=== PATIENT | male | born 1965 | race Caucasian/White ===

== ENCOUNTER → 2018-10-23 | Outpatient (REF) | payer OTHER, MEDICARE ==
[2018-10-23 19:41] LABS: APPEARANCE, URINE HAZY (CLEAR); BACTERIA, URINE AUTO 1+ (NEGATIVE); BILIRUBIN, URINE AUTO NEGATIVE (NEGATIVE); BLOOD, URINE BLOOD NEGATIVE (NEGATIVE); COLOR, URINE YELLOW (YELLOW); GLUCOSE, URINE (UA) AUTO NEGATIVE (NEGATIVE); KETONE, URINE AUTO NEGATIVE (NEGATIVE); LEUKOCYTE ESTERASE, URINE AUTO NEGATIVE (NEGATIVE); MUCUS, URINE SMALL (NEGATIVE); NITRITE, URINE AUTO POSITIVE (NEGATIVE); PROTEIN, URINE AUTO NEGATIVE (NEGATIVE); RBC, URINE AUTO 1 /HPF (0-3); SPECIFIC GRAVITY URINE AUTO 1.024 (1.002-1.035); SQUAMOUS EPITHELIAL CELL UR AU 0 /HPF (0-6); UROBILINOGEN, URINE AUTO 0.2 mg/dL (0.0-2.0); WBC, URINE AUTO 5 /HPF (0-3)
== END ==
LOC: M SMT 17:37
DX: N31.9 Neuromuscular dysfunction of bladder, unspecified (principal)

== ENCOUNTER → 2019-03-25 | Outpatient (REF) | payer OTHER, MEDICARE | LOC: M LAB LCGH 11:32 | PROVIDERS: ATTEND Surgery | DX: K31.7 Polyp of stomach and duodenum (principal) ==

== ENCOUNTER 2020-07-19 20:42 | Inpatient (IN) | payer MEDICARE, OTHER ==
[~2020-07-19] VITALS: Ht 188 cm; Wt 120.6 kg
[2020-07-19] MEDS ORDERED: PRAV10TA3 PO (20:49)
[2020-07-19] MEDS ORDERED: MONT10TA4 PO (20:49)
[2020-07-19] MEDS ORDERED: TRAM50TA2 PO (20:49)
[2020-07-19] MEDS ORDERED: CYCL-707 PO (20:49)
[2020-07-19] MEDS ORDERED: CELE100C PO (20:49)
[2020-07-19] MEDS ORDERED: OMEP-221 PO (20:49)
[2020-07-19] MEDS ORDERED: CELE1CAP4 PO (20:49)
[2020-07-19] MEDS ORDERED: ACETAMINOPHEN 500 MG TAB PO ONE (22:30)
[2020-07-19 22:35] LABS: BASO % 0.3 % (0.0-1.0); EOS # 0.1 10^3/uL (0.0-0.5); EOS % 0.7 % (0.0-3.0); HEMATOCRIT 42.1 % (42.0-52.0); LYMPH # 0.8 10^3/uL (1.5-5.0); LYMPH % 7.8 % (24.0-44.0); MEAN CORPUSCULAR HEMOGLOBIN 29.9 pg (27.0-33.0); MEAN CORPUSCULAR HGB CONC 33.3 g/dl (32.0-36.5); MEAN CORPUSCULAR VOLUME 89.8 fl (80.0-96.0); MONO # 0.4 10^3/uL (0.0-0.8); NEUTROPHILS # 9.1 10^3/uL (1.5-8.5); NEUTROPHILS % 86.6 % (36.0-66.0); PLATELET COUNT, AUTOMATED 129 10^3/uL (150-450); RED BLOOD COUNT 4.69 10^6/uL (4.30-6.10); WHITE BLOOD COUNT 10.5 10^3/uL (4.0-10.0)
[2020-07-19 22:45] LABS: BLOOD UREA NITROGEN 17 MG/DL (7-18); C REACTIVE PROTEIN QUANTITATIV 3.09 MG/DL (0.00-0.30); CALCIUM LEVEL 8.5 MG/DL (8.5-10.1); CARBON DIOXIDE LEVEL 30 MEQ/L (21-32); CHLORIDE LEVEL 107 MEQ/L (98-107); CREATININE FOR GFR 1.05 MG/DL (0.70-1.30); GLOMERULAR FILTRATION RATE > 60.0 (>56); GLUCOSE, FASTING 84 MG/DL (70-100); POTASSIUM SERUM 4.6 MEQ/L (3.5-5.1); SODIUM LEVEL 142 MEQ/L (136-145)
[2020-07-19] MEDS ORDERED: cefTRIAXone SOD 1 GM in D5W MINI-BAG PLUS 50 ML IV ONE (22:45)
[2020-07-19] MEDS ORDERED: NS 3,270 ML in IV 1 EA IV ONE (22:45)
[2020-07-19] MEDS ORDERED: ISOVUE-370 76% 100ML VIAL As Ordered ONE (23:38)
--- NOTE | 2020-07-20 00:03 | REPVR ---
PROCEDURE INFORMATION: Exam: CT Abdomen And Pelvis With Contrast Exam date and time: 07/19/2020 11:48 PM Age: 55 years old Clinical indication: Fever; Additional info: Fever, UTI TECHNIQUE: Imaging protocol: Computed tomography of the abdomen and pelvis with intravenous contrast. Radiation optimization: All CT scans at this facility use at least one of these dose optimization techniques: automated exposure control; mA and/or kV adjustment per patient size (includes targeted exams where dose is matched to clinical indication); or iterative reconstruction. Contrast material: ISOVUE 370; Contrast volume: 100 ml; Contrast route: INTRAVENOUS (IV); COMPARISON: No relevant prior studies available. FINDINGS: Liver: Enlarged low attenuating liver, evidence of hepatic steatosis. Gallbladder and bile ducts: Normal. No calcified stones. No ductal dilation. Pancreas: Normal. No ductal dilation. Spleen: Normal. No splenomegaly. Adrenals: Normal. No mass. Kidneys and ureters: Normal. No hydronephrosis. Stomach and bowel: Mild thickening of the cecum, and sigmoid colon. Nonspecific, question infectious or inflammatory bowel disease. Recommend follow-up to exclude neoplasm. Appendix: No evidence of appendicitis. Intraperitoneal space: Unremarkable. No free air. No significant fluid collection. Vasculature: Unremarkable. No abdominal aortic aneurysm. Lymph nodes: Couple mildly enhancing right lower quadrant lymph nodes measuring up to 1 cm. Bladder: Mild haziness around the bladder wall, correlate for cystitis. Reproductive: Irregular enlarged 6 cm prostate gland within the area of low attenuation in the right central aspect, and left lateral gland, correlate with PSA. Bones/joints: There is a bilateral spondylolysis defect of the L5-S1 level, with no evidence of spondylolisthesis. Soft tissues: Small fat protruding umbilical hernia. IMPRESSION: 1. Irregular enlarged 6 cm prostate gland within the area of low attenuation in the right central aspect, and left lateral gland, correlate with PSA. 2. Mild haziness around the bladder wall, correlate for cystitis. 3. Mild thickening of the cecum, and sigmoid colon. Nonspecific, question infectious or inflammatory bowel disease. Recommend follow-up to exclude neoplasm. 4. There is a bilateral spondylolysis defect of the L5-S1 level, with no evidence of spondylolisthesis. Electronically signed by: Bradley Bernabe On 07/20/2020 00:02:34 AM
[2020-07-20] MEDS: NS 1,000 ML IV SCH ×3 (00:46→12:00)
[2020-07-20] MEDS ORDERED: MOM 30ML SUSPENSION UDC PO PRN (01:00)
[2020-07-20] MEDS ORDERED: KETOROLAC 30 MG/ML 1ML VIAL IV ONE ×2 (01:00→02:00)
[2020-07-20 01:12] LABS: ERYTHROCYTE SEDIMENTATION RATE 27 mm/hr (0-20)
[2020-07-20] MEDS ORDERED: CICL8SOL3 TOP (01:13)
[2020-07-20] MEDS ORDERED: PRAV40TA2 PO (01:14)
[2020-07-20 01:32] LABS: HEMOGLOBIN A1c 5.4 %
[2020-07-20] MEDS ORDERED: CYCLOBENZAPRINE 10MG TABLET PO PRN (02:00)
[2020-07-20] MEDS ORDERED: cefTRIAXone SOD 2 GM in D5W MINI-BAG PLUS 50 ML IV SCH ×2 (02:00→23:00)
--- NOTE | 2020-07-20 02:14 | HPEPDOC ---
[facility] Medical History & Physical Date of Admission Jul 20, 2020 Date of Service: Jul 20, 2020 Attending Physician: OG MARQUEZ MD History and Physical TIME OF SERVICE: 115AM CHIEF COMPLAINT: urethral discharge HISTORY OF PRESENT ILLNESS: This 55 yr old M has to complete intermittent self-catheterization bc he has a neurogenic bladder 2/2 nerve impingement. He came to the ER bc he noticed pus co shabbir out of his urethra. His last UTI was in February. He is also c/o of f/c, muscle aches, nausea and 10/10 in severity lower back pain that begun yesterday morning; he cant identify any alleviating factors but feels like the hospital bed is making his back pain worse. He denies having abdominal pain. REVIEW OF SYSTEMS: 12 point review of systems negative except as listed in HPI PAST MEDICAL/ SURGICAL HISTORY: Neurogenic bladder 2/2 nerve impingement / herniated disk (sees & ) Chronic Back Pain / hx of back surgery in 1995 Dyslipidemia Carpal Tunnel Syndrome Denies MO, DM, HTN or CVA SOCIAL HISTORY: -tobacco / - alcohol / - drugs FAMILY HISTORY: Reviewed none ALLERGIES: Please see below. HOME MEDICATIONS: Please see below. PHYSICAL EXAMINATION: Vital Signs Date Time Temp Pulse Resp B/P (MAP) Pulse Ox O2 Delivery O2 Flow Rate FiO2 07/19/20 20:42 99.1 89 18 159/86 (110) 99 Room Air GENERAL APPEARANCE: well nourished / well developed / in a lot of pain when asked to turn onto his side HEENT: EOMI / MM&P CARDIOVASCULAR: RRR/NMRG / radial pulses intact LUNGS: CTAB on RA ABDOMEN: obese /soft &NT MUSCULOSKELETAL: BENJAMÍN / no CVA tenderness, c/o pain shooting down his spine to his legs INTEGUMENT: flushed/ diaphoretic NEUROLOGICAL: CN 2-12 intact / speech not dysarthric PSYCHIATRIC: A&Ox 3/ able to understand and follow commands LABORATORY DATA: 07/19/20 22:04 Immature Granulocyte % (Auto) 0.6, Neutrophils (%) (Auto) 86.6H, Lymphocytes (%) (Auto) 7.8L, Monocytes (%) (Auto) 4.0, Eosinophils (%) (Auto) 0.7, Basophils (%) (Auto) 0.3, Neutrophils # (Auto) 9.1H, Lymphocytes # (Auto) 0.8L, Monocytes # (Auto) 0.4, Eosinophils # (Auto) 0.1, Basophils # (Auto) 0.0, Nucleated Red Blood Cells % (auto) 0.0, Erythrocyte Sedimentation Rate 27H, Anion Gap 5L, Glomerular Filtration Rate > 60.0, Estimated Mean Plasma Glucose 108, Hemoglobin A1c 5.4, Lactic Acid Level 1.9, Calcium Level 8.5, C-Reactive Protein, Quantitative 3.09H 07/19/20 22:52: Urine Color YELLOW, Urine Appearance CLEAR, Urine pH 5.0, Urine Specific Mabel 1.015, Urine Protein NEGATIVE, Urine Glucose (UA) NEGATIVE, Urine Ketones NEGATIVE, Urine Blood 2+H, Urine Nitrite POSITIVEH, Urine Bilirubin NEGATIVE, Urine Urobilinogen 0.2, Urine Leukocyte Esterase 1+H, Urine WBC (Auto) 59H, Ur ine RBC (Auto) 29H, Urine Hyaline Casts (Auto) 0, Urine Bacteria (Auto) 1+H, Urine Squamous Epithelial Cells 0, Urine Transitional Epithelial Cells <1, Urine Mucus (Auto) SMALL, Urine Sperm (Auto) IMAGING: CT abd/pelvis w contrast IMPRESSION: 1. Irregular enlarged 6 cm prostate gland within the area of low attenuation in the right central aspect, and left lateral gland, correlate with PSA. 2. Mild haziness around the bladder wall, correlate for cystitis. 3. Mild thickening of the cecum, and sigmoid colon. Nonspecific, question infectious or inflammatory bowel disease. Recommend follow-up to exclude neoplasm. 4. There is a bilateral spondylolysis defect of the L5-S1 level, with no evidence of spondylolisthesis. MICROBIOLOGY: 07/19/20 Blood Culture, Received Pending 07/19/20 Urine Culture, Received Pending 07/19/20 Blood Culture, Received Pending ASSESSMENT: is a 55 yr old w a hx of neurogenic bladder requiring intermittent straight cath, frequent UTIs and chronic back pain who is admitted for sepsis 2/2 UTI. PLAN: 1. Sepsis 2/2 cystitis +/- prostatitis SIRS criteria Temp >101 / HR >90 / RR > 20 Sepsis protocol initiated in ER, pt received IVF and Rocephin Qsofa Score = 0 = not high risk Plan: admit to med/surg / telemetry / c/w Rocephin / c/w IVF /f/u blood cx, UA w Cx / acetaminophen for fever / day time team may consider calling Uro to determine if the prostate enlargement on CT is due to prostatitis and or if the pt will need to have is PSA checked once the infection has resolved 2. Acute on Chronic Back Pain CT unremarkable Plan: resume tramadol celecoxib w PPI / add Flector patch / PT consult / if pain persists day time team may consider MRI spine 3. Thickening of Cecum Had a c-scope last year which was unremarkable Hg is wnl Plan: f/u w PCP for GI referral on an out pt basis 4. Thrombocytopenia Born in 1965 Plan: screen for Hep C 5. Obesity BMI 30.9 complicates care Plan: f/u A1C / f/u w PCP for sleep apnea screening DVT Px w Lovenox Dispo: home after more than 2 midnights stay Home Medications Scheduled Cefdinir (Cefdinir) 300 Mg Capsule, 300 MG PO BID Please take all 10 days. Celecoxib (Celebrex) 200 Mg Capsule, 200 MG PO QAM Celecoxib (Celebrex) 100 Mg Capsule, 100 MG PO QHS Ciclopirox (Ciclopirox) 6.6 Ml Solution, 1 APLCT TOP DAILY LEFT BIG TOE Montelukast Sodium (Montelukast Sodium) 10 Mg Tablet, 10 MG PO DAILY Omeprazole (Omeprazole) 40 Mg Capsule.dr, 40 MG PO BID Pravastatin Sodium (Pravastatin Sodium) 40 Mg Tablet, MG PO DAILY Scheduled PRN Acetaminophen (Acetaminophen) 325 Mg Tablet, 650 MG PO Q4H PRN for PAIN OR FEVER Cyclobenzaprine HCl (Cyclobenzaprine HCl) 10 Mg Tablet, 10 MG PO TID PRN for prn Tramadol HCl (Tramadol HCl) 50 Mg Tablet, 50 MG PO BID PRN for pain Allergies Coded Allergies: No Known Allergies (Unverified , 07/19/20) A-FIB/CHADSVASC A-FIB History Current/History of A-Fib/PAF?: No Current PO Anticoag Therapy: No OG AMRQUEZ MD Jul 20, 2020 02:14
[2020-07-20 03:02] VITALS: BP 120/68
[2020-07-20 07:33] VITALS: BP 144/86
[2020-07-20] MEDS: ONDANSETRON 4MG/2ML VIAL IV SCH ×3 (08:00→20:46)
[2020-07-20] MEDS: ENOXAPARIN 40MG/0.4ML SYRINGE (J1650 PER 10MG) SC SCH (09:21)
[2020-07-20] MEDS: CelecoXIB (CeleBREX) 100 MG CAP PO SCH (09:22)
[2020-07-20] MEDS: MONTELUKAST 10 MG TAB PO SCH (09:22)
[2020-07-20] MEDS: OMEPRAZOLE 20 MG CAP PO SCH ×2 (09:22→20:46)
[2020-07-20] MEDS: traMADol 50 MG TAB PO PRN ×2 (09:24→20:46)
[2020-07-20] MEDS: DICLOFENAC EPOLAMINE 1.3 % PATCH TOP SCH ×2 (09:24→20:45)
[2020-07-20 12:00] VITALS: BP 123/74
[2020-07-20] MEDS ORDERED: CYCLOBENZAPRINE 5MG TABLET PO PRN (14:00)
[2020-07-20] MEDS: ACETAMINOPHEN TAB 650MG DOSE (2X325MG) PO PRN ×2 (14:57→21:18)
[2020-07-20 15:29] VITALS: BP 138/76
--- NOTE | 2020-07-20 15:57 | IPNPDOC ---
Text Note Date of Service The patient was seen on 07/20/20. NOTE S: The pt is a 55 year old male with a pertinent history of recurrent UTI's, Neurogenic bladder- secondary to Lumbar Radiculopathy, requiring Intermittent Catheterization, who presented to the ED with the chief complaint of urethral discharge for one day. He also had nausea and burning in his urethral area. In ED, he was found to be febrile with leucocytosis, abnormal urine analysis and CT abdomen and pelvis concerning for prostatitis/ cystitis. Today, he is feeling a lot better and states the discharge has decreased. He still complained of some nausea and chills. O: PHYSICAL EXAMINATION: VITAL SIGNS: See Below GENERAL APPEARANCE: The patient looked comfortable, not in any acute distress. HEENT: NC/AT, EOMI CARDIOVASCULAR: RRR , S1,S2 , No murmurs heard RESPIRATORY: Symmetrical chest expansion, Clear to auscultation, no wheezing or crackles heard ABDOMEN: NT/ND, No organomegaly , BS +. No CVA tenderness. MUSCULOSKELETAL: Back: Tender over the left iliac crest Feet: Tender ankles, decreased ROM due to pain. EXTREMITIES: No edema, no rash, +2/4 radial pulse and Dorsalis Pedis +2/4. NEUROLOGICAL: 5/5 motor strength, Sensations intact. PSYCHIATRIC: AOx3, Normal mood and affect A & P: # Urethral discharge: >1. SIRS+ with source of infection along tract meets qualifications for sepsis. Patient given 30 cc/kg bolus and started on empiric treatment concerning for cystitis vs Pyelonephritis vs prostatitis- Abnormal urine analysis, fever, urinary burning, urethral discharge and leucocytosis -Pt's CT findings show bladder wall thickening. -Pt is on IV Rocephin 2 gm 50 ml at 100mls/hr. -Discontinue fluids -Pt has good hydration status with some leg edema -Urine culture pending -Blood culture pending. >2. Prostatitis: -Pt's CT findings show Prostatic enlargement -IV Rocephin 2gms started. -PSA ordered # B/L leg edema: Positive balance of fluids- 2620 ml over the last 24 hrs. -Discontinue fluids. # Chronic back pain: Continue his Celecoxib, Tramadol, Diclofenac patch. -PT consulted #Neurogenic Bladder: -secondary to his lumbar radiculopathy (L5,S1). Continue Intertmittent Catheterization. #Dyslipidemia: Continue Pravastatin. DVT Prophylaxis with Enoxaparin VS,Fishbone, I+O VS, Fishbone, I+O Laboratory Tests 07/19/20 22:04 Vital Signs Date Time Temp Pulse Resp B/P (MAP) Pulse Ox O2 Delivery O2 Flow Rate FiO2 07/20/20 15:29 98.6 78 18 138/76 (96) 93 Room Air I&O- Last 24 Hours up to 6 AM 07/20/20 06:00 Intake Total 3570 ml Output Total 700 ml Balance 2870 ml GME ATTESTATION GME ATTESTATION My faculty preceptor for this patient encounter was physically present during the encounter and was fully available. All aspects of the patient interview, examination, medical decision making process, and medical care plan development were reviewed and approved by the faculty preceptor. The faculty preceptor is aware and concurs with the plan as stated in the body of this note and will attest to such by his/her cosignature. ATTENDING NOTE Patient was seen and examined by me personally with the residents and I agree with the above assessment and plan Geoff Rodriguez MD Jul 20, 2020 15:57 KAYLYNN SOMERS MD Jul 21, 2020 16:37
[2020-07-20 20:00] VITALS: BP 143/75
[2020-07-20] MEDS ORDERED: CelecoXIB (CeleBREX) 100 MG CAP PO SCH (21:00)
[2020-07-21] MEDS: ONDANSETRON 4MG/2ML VIAL IV SCH ×3 (02:17→14:20)
[2020-07-21 04:00] VITALS: BP 100/55
[2020-07-21 06:30] LABS: HEMATOCRIT 37.2 % (42.0-52.0); HEMOGLOBIN 12.2 g/dl (13.5-17.5); MEAN CORPUSCULAR HGB CONC 32.8 g/dl (32.0-36.5); MEAN CORPUSCULAR VOLUME 91.4 fl (80.0-96.0); PLATELET COUNT, AUTOMATED 118 10^3/uL (150-450); RED BLOOD COUNT 4.07 10^6/uL (4.30-6.10); WHITE BLOOD COUNT 9.7 10^3/uL (4.0-10.0)
[2020-07-21 06:56] LABS: BLOOD UREA NITROGEN 16 MG/DL (7-18); CALCIUM LEVEL 7.7 MG/DL (8.5-10.1); CARBON DIOXIDE LEVEL 30 MEQ/L (21-32); CHLORIDE LEVEL 105 MEQ/L (98-107); CREATININE FOR GFR 1.12 MG/DL (0.70-1.30); GLOMERULAR FILTRATION RATE > 60.0 (>56); GLUCOSE, FASTING 87 MG/DL (70-100); MAGNESIUM LEVEL 1.8 MG/DL (1.8-2.4); POTASSIUM SERUM 3.9 MEQ/L (3.5-5.1); SODIUM LEVEL 138 MEQ/L (136-145)
[2020-07-21 08:00] VITALS: BP 140/80
[2020-07-21] MEDS: CelecoXIB (CeleBREX) 100 MG CAP PO SCH (08:10)
[2020-07-21] MEDS: ENOXAPARIN 40MG/0.4ML SYRINGE (J1650 PER 10MG) SC SCH (08:10)
[2020-07-21] MEDS: DICLOFENAC EPOLAMINE 1.3 % PATCH TOP SCH (08:10)
[2020-07-21] MEDS: OMEPRAZOLE 20 MG CAP PO SCH (08:10)
[2020-07-21] MEDS: MONTELUKAST 10 MG TAB PO SCH (08:11)
[2020-07-21] MEDS: ACETAMINOPHEN TAB 650MG DOSE (2X325MG) PO PRN (08:11)
[2020-07-21] MEDS: traMADol 50 MG TAB PO PRN (08:22)
[2020-07-21] MEDS ORDERED: PRAVASTATIN 20 MG TAB PO SCH (09:00)
[2020-07-21 12:00] VITALS: BP 146/81
[2020-07-21] MEDS ORDERED: ACET1TAB55 PO (14:14)
[2020-07-21] MEDS ORDERED: CEFD300CAP PO (14:14)
[2020-07-21 16:00] VITALS: BP 148/83
--- NOTE | 2020-07-21 16:37 | DS.PDOC ---
Discharge Summary General Date of Admission Jul 20, 2020 at 00:46 Date of Discharge 07/21/2020 Attending Physician: KAYLYNN SOMERS MD Discharge Summary PROCEDURES PERFORMED DURING STAY: [None]. ADMITTING DIAGNOSES: 1. Sepsis secondary to Urinary tract infection DISCHARGE DIAGNOSES: 1. Complicated Cystitis COMPLICATIONS/CHIEF COMPLAINT: Urethral Discharge HISTORY OF PRESENT ILLNESS: Mr Fontenot is a 55 year old male with a pertinent history of recurrent UTI's, Neurogenic bladder- secondary to Lumbar Radiculopathy, requiring Intermittent Catheterization, who presented to the ED with the chief complaint of urethral discharge for one day. He also had nausea and burning in his urethral area. In ED, he was found to be febrile with leucocytosis, abnormal urine analysis and CT abdomen and pelvis concerning for prostatitis/ cystitis. HOSPITAL COURSE/DISCHARGE PLAN: > Cystitis: Found on CT with Irregular enlarged 6 cm prostate gland within the area of low attenuation in the right central aspect, and left lateral gland . Mild haziness around the bladder wall, correlate for cystitis concerning for Cystitis vs Prostatitis. -Pt was started on 30 cc/kg bolus fluid -He was started on I/V Rocephin 50 mg @100 mls/hr Q24. -His Blood cultures were negative . Urine cultures still pending and the patient is advised to follow up with his PCP for that. Pt will continue Oral Cefdinir 300 mg BID for 10 days and advised to follow up with PCP if the symptoms like fever, dysuria, urethral discharge worsen. Discussed in detail regarding the irregular prostate needing for the workup especially once his infection is resolved. He states understanding and will follow up with his Urologist in 2 weeks. PSA was sent which is still pending and he again was asked to follow it up with PCP/Urology. He was symptomatically improved today and wanted to go home and desired any further workup as outpatient. > Dyslipidemia: Continue Pravastatin. > Neurogenic bladder: Intermittent Catheterization was continued. > Chronic back pain- Tramadol, celecoxib and diclofenac patch were continued. DISCHARGE MEDICATIONS: Please see below. ALLERGIES: Please see below. PHYSICAL EXAMINATION ON DISCHARGE: VITAL SIGNS: Please see below. GENERAL APPEARANCE: The patient looked fine, not in any acute distress.. HEENT: NC/AT, EOMI CARDIOVASCULAR: Normal R,R,R , S1,S2 , No murmurs heard RESPIRATORY: Symmetrical chest expansion, Clear to auscultation, No crackles, no rhonchi ABDOMEN: ND/NT, No organomegaly , BS +. MUSCULOSKELETAL: Good range of motion in all joints. EXTREMITIES: No edema, no rash, Good regular pulses. NEUROLOGICAL: Good motor strength, Sensations intact. PSYCHIATRIC: AOx3,Normal mood and affect. LABORATORY DATA: Please see below. IMAGING: . Irregular enlarged 6 cm prostate gland within the area of low attenuation in the right central aspect, and left lateral gland, correlate with PSA. 2. Mild haziness around the bladder wall, correlate for cystitis. 3. Mild thickening of the cecum, and sigmoid colon. Nonspecific, question infectious or inflammatory bowel disease. Recommend follow-up to exclude neoplasm. 4. There is a bilateral spondylolysis defect of the L5-S1 level, with no evidence of spondylolisthesis. PROGNOSIS: Good ACTIVITY: As tolerated. DIET: As Tolerated DISPOSITION: The patient's urethral discharge has markedly decreased, with no fever. The infection is resolving as per the labs and clinical condition of the patient and will be discharged home. DISCHARGE INSTRUCTIONS: 1. Pt asked to continue the oral Antibiotics for 10 days. 2.Pt was informed about a sanitary way to self catheterize. 3.Follow up with his PCP in the next 10 days with follow up on his PSA levels. ITEMS TO FOLLOWUP ON ON OUTPATIENT: 1.PSA levels to rule out any Prostate pathology eg (Prostate Cancer). 2.Sigmoid colon thickness found on CT to be followed up by the PCP. DISCHARGE CONDITION: [Stable]. TIME SPENT ON DISCHARGE: Greater than 45 minutes. Vital Signs/I&Os Vital Signs Date Time Temp Pulse Resp B/P (MAP) Pulse Ox O2 Delivery O2 Flow Rate FiO2 07/21/20 16:00 99.5 75 18 148/83 (104) 96 Room Air I&O- Last 24 Hours up to 6 AM 07/21/20 06:00 Intake Total 2226 ml Output Total 1400 ml Balance 826 ml Laboratory Data Labs 24H Laboratory Tests 2 07/21/20 06:12: Nucleated Red Blood Cells % (auto) 0.0, Anion Gap 3L, Glomerular Filtration Rate > 60.0, Calcium Level 7.7L, Magnesium Level 1.8 CBC/BMP Laboratory Tests 07/21/20 06:12 Microbiology Microbiology 07/19/20 Blood Culture - Preliminary, Resulted No growth after 24 hours . All specim... 07/19/20 Urine Culture, Received Pending 07/19/20 Blood Culture - Preliminary, Resulted No growth after 24 hours . All specim... Discharge Medications Scheduled Cefdinir (Cefdinir) 300 Mg Capsule, 300 MG PO BID Please take all 10 days. Celecoxib (Celebrex) 200 Mg Capsule, 200 MG PO QAM, (Reported) Celecoxib (Celebrex) 100 Mg Capsule, 100 MG PO QHS, (Reported) Ciclopirox (Ciclopirox) 6.6 Ml Solution, 1 APLCT TOP DAILY, (Reported) LEFT BIG TOE Montelukast Sodium (Montelukast Sodium) 10 Mg Tablet, 10 MG PO DAILY, (Reported) Omeprazole (Omeprazole) 40 Mg Capsule.dr, 40 MG PO BID, (Reported) Pravastatin Sodium (Pravastatin Sodium) 40 Mg Tablet, MG PO DAILY, (Reported) Scheduled PRN Acetaminophen (Acetaminophen) 325 Mg Tablet, 650 MG PO Q4H PRN for PAIN OR FEVER Cyclobenzaprine HCl (Cyclobenzaprine HCl) 10 Mg Tablet, 10 MG PO TID PRN for prn, (Reported) Tramadol HCl (Tramadol HCl) 50 Mg Tablet, 50 MG PO BID PRN for pain, (Reported) Allergies Coded Allergies: No Known Allergies (Unverified , 07/19/20) GME ATTESTATION GME ATTESTATION My faculty preceptor for this patient encounter was physically present during the encounter and was fully available. All aspects of the patient interview, exa mination, medical decision making process, and medical care plan development were reviewed and approved by the faculty preceptor. The faculty preceptor is aware and concurs with the plan as stated in the body of this note and will attest to such by his/her cosignature. ATTENDING NOTE Patient was seen and examined by me personally with the residents and I agree with the above assessment and plan Geoff Rodriguez MD Jul 21, 2020 16:28 KAYLYNN SOMERS MD Jul 23, 2020 13:50
[2020-07-21] MEDS ORDERED: CEFDINIR 300 MG CAP (OMNICEF) PO SCH (21:00)
[2020-07-22 04:07] LABS: PSA TOTAL 18.1 ng/mL (0.0-4.0)
== END 2020-07-21 16:33 | disposition home or self-care (01) | DRG 872 ==
LOC: M ED 20:42 → M ED INP 07-20 00:46 → ENRESERV 07-20 01:20 → M PCU 07-20 03:02
PROVIDERS: ADMIT Internal Medicine; ATTEND Internal Medicine
DX: A41.9 Sepsis, unspecified organism (principal); N30.00 Acute cystitis without hematuria; N31.9 Neuromuscular dysfunction of bladder, unspecified; E78.5 Hyperlipidemia, unspecified; M54.5 Low back pain; Z79.899 Other long term (current) drug therapy; D69.6 Thrombocytopenia, unspecified; E66.9 Obesity, unspecified; Z68.30 Body mass index [BMI] 30.0-30.9, adult

== ENCOUNTER → 2020-08-26 | Outpatient (CLI) | payer MEDICARE, OTHER ==
[~2020-08-26] MED LIST: ACET1TAB55 PO; CEFD300CAP PO; CELE100C PO; CELE1CAP4 PO; CICL8SOL3 TOP; CYCL-707 PO; MONT10TA4 PO; OMEP-221 PO; PRAV10TA3 PO; PRAV40TA2 PO; TRAM50TA2 PO
[2020-08-26 13:58] LABS: APPEARANCE, URINE CLEAR (CLEAR); BACTERIA, URINE AUTO NEGATIVE (NEGATIVE); BILIRUBIN, URINE AUTO NEGATIVE (NEGATIVE); BLOOD, URINE BLOOD NEGATIVE (NEGATIVE); COLOR, URINE YELLOW (YELLOW); GLUCOSE, URINE (UA) AUTO NEGATIVE (NEGATIVE); KETONE, URINE AUTO NEGATIVE (NEGATIVE); LEUKOCYTE ESTERASE, URINE AUTO NEGATIVE (NEGATIVE); MUCUS, URINE SMALL (NEGATIVE); NITRITE, URINE AUTO NEGATIVE (NEGATIVE); PROTEIN, URINE AUTO NEGATIVE (NEGATIVE); RBC, URINE AUTO 3 /HPF (0-3); SQUAMOUS EPITHELIAL CELL UR AU 0 /HPF (0-6); UROBILINOGEN, URINE AUTO 0.2 mg/dL (0.0-2.0); WBC, URINE AUTO 4 /HPF (0-3)
== END ==
LOC: M LAB 11:33
PROVIDERS: ATTEND Nurse Practitioner Women's Health
DX: N39.0 Urinary tract infection, site not specified (principal)

== ENCOUNTER 2021-08-01 11:15 | Inpatient (IN) | payer MEDICARE, OTHER ==
[~2021-08-01] VITALS: Ht 188 cm; Wt 116.1 kg
[~2021-08-01 11:15] MED LIST changes: +MONT10TA10 PO; -MONT10TA4 PO
[2021-08-01] MEDS ORDERED: ONDANSETRON 4MG/2ML VIAL IV ONE (13:55)
[2021-08-01] MEDS ORDERED: KETOROLAC 30 MG/ML 1ML VIAL IV ONE (13:55)
[2021-08-01] MEDS ORDERED: cefTRIAXone SOD 1 GM in D5W MINI-BAG PLUS 50 ML IV ONE (13:55)
[2021-08-01] MEDS ORDERED: NS 3,480 ML in IV 1 EA IV ONE (13:55)
[2021-08-01 14:09] LABS: BASO % 0.1 % (0.0-1.0); HEMATOCRIT 42.9 % (42.0-52.0); HEMOGLOBIN 14.4 g/dl (13.5-17.5); LYMPH # 0.7 10^3/uL (1.5-5.0); LYMPH % 5.4 % (24.0-44.0); MEAN CORPUSCULAR HEMOGLOBIN 29.2 pg (27.0-33.0); MEAN CORPUSCULAR HGB CONC 33.6 g/dl (32.0-36.5); MONO # 0.7 10^3/uL (0.0-0.8); MONO % 5.3 % (2.0-8.0); NEUTROPHILS # 11.9 10^3/uL (1.5-8.5); NEUTROPHILS % 88.7 % (36.0-66.0); PLATELET COUNT, AUTOMATED 149 10^3/uL (150-450); RED BLOOD COUNT 4.93 10^6/uL (4.30-6.10); WHITE BLOOD COUNT 13.4 10^3/uL (4.0-10.0)
[2021-08-01 14:27] LABS: ERYTHROCYTE SEDIMENTATION RATE 15 mm/hr (0-20)
[2021-08-01] MEDS ORDERED: ISOVUE-370 76% 100ML VIAL As Ordered ONE (14:35)
[2021-08-01 14:49] LABS: RSV AMPLIFICATION NEGATIVE (NEGATIVE)
[2021-08-01] MEDS ORDERED: ACETAMINOPHEN 500 MG TAB PO ONE (15:35)
--- NOTE | 2021-08-01 15:46 | REP ---
INDICATION: fever, flank pain COMPARISON: 07/19/2020. TECHNIQUE: CT Scan of the abdomen and pelvis was performed with intravenous administration of 100 cc of Isovue 370, without oral contrast. Sagittal and coronal reconstruction images are performed. FINDINGS: Lung bases: Unremarkable. Liver: The liver is enlarged measuring 19 cm in length, with diffuse fatty infiltration. Gallbladder: Unremarkable. Spleen: Spleen is mildly enlarged, 14 cm in length. Adrenals: Normal. Pancreas: Normal. Kidneys: Normal. Small and large bowel: Unremarkable. Free fluid: None. Abdominal aorta: No aneurysm or dissection. Adenopathy: None. Appendix: Not inflamed. Osseous structures: There are degenerative changes of the spine without compression deformity. There is spondylolysis of L5 without significant spondylolisthesis. Pelvis: No mass. There is a tiny umbilical hernia containing noninflamed fat. IMPRESSION: Mild hepatosplenomegaly with diffuse fatty infiltration of the liver. No acute abnormalities. <Electronically signed by Gautam Messer > 08/01/21 [id number]
[2021-08-01] MEDS ORDERED: METOCLOPRAMIDE INJ 10MG/2ML VIAL (J2765 PER 1) IV ONE (16:00)
[2021-08-01] MEDS ORDERED: MORPHINE 4 MG/ML 1ML VIAL/SYRINGE (J2270) IV ONE (16:00)
--- NOTE | 2021-08-01 17:15 | REP ---
INDICATION: pls reconstruct c abd/pelvis with contrast, r/o abscess. COMPARISON: CT abdomen pelvis 08/01/2021 and 07/19/2020. TECHNIQUE: Axial CT performed following the intravenous administration of 100 cc of Isovue 370. Sagittal and coronal reconstruction images performed. FINDINGS: There is no compression fracture or malalignment. There is no osseous destruction or bone lesion. There is spondylolysis of L5 bilaterally. There is no spondylolisthesis. There is mild diffuse spurring. There is mild disc space narrowing and subchondral sclerosis at virtually all levels. Vacuum phenomenon is noted at L5-S1. There is mild diffuse disc bulging at all levels. No paraspinal fluid collection is seen. IMPRESSION: Diffuse degenerative changes as discussed above. No compression fracture or osseous destruction. No bone lesion. Spondylolysis L5 without spondylolisthesis. No paraspinal fluid collection. <Electronically signed by Gautam Messer > 08/01/21 [id number]
[2021-08-01] MEDS ORDERED: ACETAMINOPHEN TAB 650MG DOSE (2X325MG) PO PRN (18:15)
[2021-08-01] MEDS ORDERED: POTASSIUM CHLORIDE 10MEQ SR TABLET PO ONE (18:15)
[2021-08-01] MEDS ORDERED: KETOROLAC 30 MG/ML 1ML VIAL IV PRN (18:15)
--- NOTE | 2021-08-01 18:34 | HPEPDOC ---
General Date of Admission August 01, 2021 Date of Service: Aug 01, 2021 Chief Complaint The patient is a 56-year-old male admitted with a reason for visit of Fever / Low Back Pain / Nausea. Source: Patient History of Present Illness Mr. Fontenot is a 56-year-old male with neurogenic bladder who is here with fever, rigors, and decreased urine output. Yesterday evening, patient started to have rigors. He measured his temperature. His highest temperature was 101.5. Due to patient's neurogenic bladder, patient straight cath. He does not know if he had dysuria, he does notice decreased urine output and darker than normal urine. In addition, his chronic back pain changed. He is experiencing a sharp left flank pain which was constant. It did not change with position. Did not get better with rest. Pain only improved with analgesics. Patient came to the ED for evaluation. He had a temperature of 101.2 and leukocytosis of 13.4. UA demonstrated pyuria. Blood cultures and urine cultures pending. Imaging did not demonstrate perinephric stranding or abscess. On physical exam patient did exhibit left CVA tenderness. Patient met criteria for sepsis and was given 30 mL/kg fluid and ceftriaxone. Patient will be admitted for left pyelonephritis Home Medications Scheduled Celecoxib (Celebrex) 200 Mg Capsule, 200 MG PO QAM, (Reported) Celecoxib (Celebrex) 100 Mg Capsule, 100 MG PO QHS, (Reported) Montelukast Sodium (Montelukast Sodium) 10 Mg Tablet, 10 MG PO QHS, (Reported) Omeprazole (Omeprazole) 40 Mg Capsule.dr, 40 MG PO BID, (Reported) Pravastatin Sodium (Pravastatin Sodium) 40 Mg Tablet, 40 MG PO DAILY, (Reported) Tramadol HCl (Tramadol HCl) 50 Mg Tablet, 50 MG PO QAM, (Reported) Tramadol HCl (Tramadol HCl) 50 Mg Tablet, 75 MG PO QHS, (Reported) Scheduled PRN Acetaminophen (Acetaminophen) 325 Mg Tablet, 650 MG PO Q4H PRN for PAIN OR FEVER Cyclobenzaprine HCl (Cyclobenzaprine HCl) 10 Mg Tablet, 10 MG PO TID PRN for MUSCLE SPASMS, (Reported) Allergies Coded Allergies: No Known Allergies (Unverified , 08/01/21) Past Medical History Medical History 1. Neurogenic bladder secondary to nerve impingement from herniated disc 2. Chronic low back pain status post surgery 3. Dyslipidemia 4. Carpal tunnel syndrome Surgical History 1. Carpal tunnel bilaterally 2. Low back partial disc removal Family History Father: Patient does not know father's past medical history Mother: History of breast cancer, emphysema, and cirrhosis of the liver Social History * Smoker: Denies Alcohol: Denies Drugs: denies A-FIB/CHADSVASC A-FIB History Current/History of A-Fib/PAF?: No Review of Systems Constitutional: Reports: Chills, Fever, Other (Rigors) Eyes: Denies: Vision change ENT: Denies: Sore Throat Skin: Denies: Rash Pulmonary: Denies: Dyspnea, Cough Cardiovascular: Denies: Chest Pain Gastrointestinal: Denies: Nausea, Abdominal Pain Genitourinary: Reports: Other Symptoms (Patient chronically self cath. Decreased urine output) Hematologic: Denies: Bruising Musculoskeletal: Reports: Other Symptoms (Left flank pain) Neurological: Denies: Numbness Psych: Denies: Anxiety, Depression Physical Examination General Exam: Positive: Alert, Cooperative Eye Exam: Negative: Sclera icteric ENT Exam: Positive: Atraumatic Neck Exam: Positive: Supple Chest Exam: Positive: Clear to auscultation; Negative: Rales, Rhonchi, Wheezing Heart Exam: Positive: Rate Normal, Regular Rhythm Abdomen Exam: Positive: Normal bowel sounds, Soft; Negative: Tenderness Extremity Exam: Negative: Edema Neuro Exam: Positive: Normal Speech, Cranial Nerves 3-12 NL Psych Exam: Positive: Mental status NL, Mood NL Vital Signs Vital Signs Date Time Temp Pulse Resp B/P (MAP) Pulse Ox O2 Delivery O2 Flow Rate FiO2 08/01/21 17:19 81 18 108/57 (74) 95 Room Air 08/01/21 16:57 98.7 Laboratory Data Labs 24H Laboratory Tests 2 08/01/21 13:09: Urine Color KERI, Urine Appearance HAZY, Urine pH 6.0, Urine Specific [place] 1.033, Urine Protein 2+H, Urine Glucose (UA) NEGATIVE, Urine Ketones 1+H, Urine Blood 1+H, Urine Nitrite NEGATIVE, Urine Bilirubin NEGATIVE, Urine Urobilinogen 0.2, Urine Leukocyte Esterase 2+H, Urine WBC (Auto) 139H, Urine RBC (Auto) 3, Urine Hyaline Casts (Auto) 0, Urine Bacteria (Auto) NEGATIVE, Urine Squamous Epithelial Cells 1, Urine Mucus (Auto) SMALL, Urine Sperm (Auto) 08/01/21 13:58: Immature Granulocyte % (Auto) 0.5, Neutrophils (%) (Auto) 88.7H, Lymphocytes (%) (Auto) 5.4L, Monocytes (%) (Auto) 5.3, Eosinophils (%) (Auto) 0.0, Basophils (%) (Auto) 0.1, Neutrophils # (Auto) 11.9H, Lymphocytes # (Auto) 0.7L, Monocytes # (Auto) 0.7, Eosinophils # (Auto) 0.0, Basophils # (Auto) 0.0, Nucleated Red Blood Cells % (auto) 0.0, Erythrocyte Sedimentation Rate 15, Lactic Acid Level 1.1, C-Reactive Protein, Quantitative 10.20H, Coronavirus (COVID-19)(PCR) NEGATIVE, Influenza Type A (RT-PCR) NEGATIVE, Influenza Type B (RT-PCR) NEGATIVE, Respiratory Syncytial Virus (PCR) NEGATIVE 08/01/21 14:03: POC Glucose (Misc Panel) 94, POC Sodium (Misc Panel) 138, POC Potassium (Misc Panel) 3.4L, POC Chloride (Misc Panel) 104, POC Total CO2 (Misc Panel) 21.0L, POC Blood Urea Nitrogen (Misc Panel 20, POC Ionized Calcium (Misc Panel) 4.4L, POC Creatinine (Misc Panel) 0.9, POC Hematocrit (Misc Panel) 43.0 CBC/BMP Laboratory Tests 08/01/21 13:58 Microbiology Microbiology 08/01/21 Blood Culture, Received Pending 08/01/21 Blood Culture, Received Pending 08/01/21 Urine Culture, Received Pending Assessment/Plan Mr. Fontenot is a 56-year-old male with neurogenic bladder who is here with fever, rigors, and decreased urine output. Patient's symptoms and lab results suggest left pyelonephritis although there is no imaging findings of pyelonephritis. This may be early pyelonephritis. Otherwise, this could also be complicated cy stitis. Regardless, management will be the same. Continue IV fluids and ceftriaxone. Pending urine culture and blood culture results Plan / VTE VTE Prophylaxis Ordered?: Yes Plan Plan 1. Sepsis secondary to left pyelonephritis Patient met 2 out of 4 SIRS criteria with fever and leukocytosis Patient received 30 mL/kg of fluid and IV ceftriaxone in the ED 2. Left pyelonephritis versus complicated cystitis Pending urine culture and blood culture Ceftriaxone day 1 Continue IVF 3. Neurogenic bladder Patient okay to continue self cathing 4. Chronic back pain Continue patient's pain regimen which includes cyclobenzaprine, tramadol and celecoxib 5. Hyperlipidemia Continue pravastatin 6. GERD Continue omeprazole 7. DVT prophylaxis Lovenox Disposition: Pending clinical improvement and urine culture results ZEE NGUYỄN DO Aug 01, 2021 18:34
[2021-08-01] MEDS ORDERED: TRAM50TA2 PO (18:42)
[2021-08-01] MEDS ORDERED: HOME MED LIST COMPLETE! XX SCH (18:45)
[2021-08-01] MEDS ORDERED: CYCLOBENZAPRINE 10MG TABLET PO PRN (18:55)
[2021-08-01] MEDS: NS 1,000 ML IV SCH (18:55)
[2021-08-01] MEDS ORDERED: MORPHINE 2 MG/ML 1ML VIAL (J2270) IV PRN (18:55)
[2021-08-01] MEDS ORDERED: PILL CUTTER 1 EACH XX PRN (19:10)
[2021-08-01] MEDS: MONTELUKAST 10 MG TAB PO SCH (21:13)
[2021-08-01] MEDS: OMEPRAZOLE 20 MG CAP PO SCH (21:13)
[2021-08-01] MEDS: traMADol 50 MG TAB PO SCH (21:15)
[2021-08-01] MEDS: CelecoXIB (CeleBREX) 100 MG CAP PO SCH (22:10)
[2021-08-01] MEDS: PERCOCET 5MG/325MG TAB PO PRN (23:38)
[2021-08-02] MEDS: NS 1,000 ML IV SCH ×3 (05:08→20:14)
[2021-08-02 06:00] VITALS: BP 116/56
[2021-08-02 06:16] LABS: HEMATOCRIT 36.5 % (42.0-52.0); HEMOGLOBIN 11.9 g/dl (13.5-17.5); MEAN CORPUSCULAR HEMOGLOBIN 29.2 pg (27.0-33.0); MEAN CORPUSCULAR HGB CONC 32.6 g/dl (32.0-36.5); MEAN CORPUSCULAR VOLUME 89.7 fl (80.0-96.0); PLATELET COUNT, AUTOMATED 117 10^3/uL (150-450); RED BLOOD COUNT 4.07 10^6/uL (4.30-6.10); WHITE BLOOD COUNT 12.1 10^3/uL (4.0-10.0)
[2021-08-02 06:42] LABS: BLOOD UREA NITROGEN 17 MG/DL (7-18); CALCIUM LEVEL 7.3 MG/DL (8.5-10.1); CARBON DIOXIDE LEVEL 24 MEQ/L (21-32); CHLORIDE LEVEL 108 MEQ/L (98-107); GLOMERULAR FILTRATION RATE > 60.0 (>56); GLUCOSE, FASTING 96 MG/DL (70-100); POTASSIUM SERUM 4.2 MEQ/L (3.5-5.1); SODIUM LEVEL 139 MEQ/L (136-145)
[2021-08-02] MEDS: PERCOCET 5MG/325MG TAB PO PRN ×3 (07:55→20:12)
[2021-08-02] MEDS: CelecoXIB (CeleBREX) 100 MG CAP PO SCH ×2 (08:20→20:13)
[2021-08-02] MEDS: PRAVASTATIN 20 MG TAB PO SCH (08:20)
[2021-08-02] MEDS: OMEPRAZOLE 20 MG CAP PO SCH ×2 (08:20→20:13)
[2021-08-02] MEDS: ENOXAPARIN 40MG/0.4ML SYRINGE (J1650 PER 10MG) SC SCH (09:00)
[2021-08-02] MEDS: traMADol 50 MG TAB PO SCH ×2 (10:47→20:13)
[2021-08-02 13:52] LABS: GC DNA AMPLIFICATION NEGATIVE (NEGATIVE)
[2021-08-02 14:00] VITALS: BP 127/60
[2021-08-02] MEDS: cefTRIAXone SOD 1 GM in D5W MINI-BAG PLUS 50 ML IV SCH (14:18)
--- NOTE | 2021-08-02 15:43 | IPNPDOC ---
Subjective Date Seen The patient was seen on 08/02/21. Subjective Chief Complaint/HPI Mr. Fontenot is a 56-year-old male with neurogenic bladder who is here with fever, rigors, and decreased urine output. This morning, he denies any chest pain or dyspnea, but he was noticing discharge from his urethra. Otherwise, he had low grade fever this morning. One of two blood cultures returned positive with gram negative cyril. Due to the discharge, I ordered GC and chlamydia PCR which was negative Objective Physical Examination General Exam: Positive: Alert, Cooperative Eye Exam: Negative: Sclera icteric ENT Exam: Positive: Atraumatic Neck Exam: Positive: Supple Chest Exam: Positive: Clear to auscultation; Negative: Rales, Rhonchi, Wheezing Heart Exam: Positive: Rate Normal, Regular Rhythm Abdomen Exam: Positive: Normal bowel sounds, Soft; Negative: Tenderness Extremity Exam: Negative: Edema Neuro Exam: Positive: Normal Speech, Cranial Nerves 3-12 NL Psych Exam: Positive: Mental status NL, Mood NL Assessment /Plan Assessment Mr. Fontenot is a 56-year-old male with neurogenic bladder who is here with fever, rigors, and decreased urine output. Patient's symptoms and lab results suggest left pyelonephritis although there is no imaging findings of pyelonephritis. This may be early pyelonephritis. Otherwise, this could also be complicated cys titis. Regardless, management will be the same. Continue IV fluids and ceftriaxone. Pending urine culture and blood culture results Plan/VTE VTE Prophylaxis Ordered?: Yes Plan 1. Sepsis secondary to left pyelonephritis Patient met 2 out of 4 SIRS criteria with fever and leukocytosis Patient received 30 mL/kg of fluid and IV ceftriaxone in the ED 2. Gram negative bacteremia -One of two blood cultures returned positive for gram negative rods -Most likely source is urine -Pending C&S -Continue ceftriaxone 3. Left pyelonephritis versus complicated cystitis Pending urine culture and blood culture Ceftriaxone day 2 Continue IVF 4. Neurogenic bladder Patient okay to continue self cathing 5. Chronic back pain Continue patient's pain regimen which includes cyclobenzaprine, tramadol and celecoxib 6. Hyperlipidemia Continue pravastatin 7. GERD Continue omeprazole 8. DVT prophylaxis Lovenox Disposition: Pending blood and urine culture results VS, I&O, 24H, Fishbone Vital Signs/I&O Vital Signs Date Time Temp Pulse Resp B/P (MAP) Pulse Ox O2 Delivery O2 Flow Rate FiO2 08/02/21 10:47 18 08/02/21 08:30 99.5 Room Air 08/02/21 06:00 56 116/56 (76) 97 I&O- Last 24 Hours up to 6 AM 08/02/21 06:00 Intake Total 929 ml Balance 929 ml Laboratory Data 24H LABS Laboratory Tests 2 08/02/21 05:51: Nucleated Red Blood Cells % (auto) 0.0, Anion Gap 7L, Glomerular Filtration Rate > 60.0, Calcium Level 7.3L, C-Reactive Protein, Quantitative 16.30H CBC/BMP Laboratory Tests 08/02/21 05:51 Microbiology Microbiology 08/01/21 Blood Culture - Preliminary, Resulted 08/01/21 Blood Culture - Preliminary, Resulted No growth after 24 hours . All specim... 08/01/21 Urine Culture, Received Pending ZEE NGUYỄN DO Aug 02, 2021 15:43
[2021-08-02] MEDS: MONTELUKAST 10 MG TAB PO SCH (20:13)
[2021-08-02 22:00] VITALS: BP 132/66
[2021-08-03 06:00] VITALS: BP 128/77
[2021-08-03] MEDS: NS 1,000 ML IV SCH (06:32)
[2021-08-03 06:38] LABS: HEMATOCRIT 34.6 % (42.0-52.0); HEMOGLOBIN 11.4 g/dl (13.5-17.5); MEAN CORPUSCULAR HEMOGLOBIN 29.3 pg (27.0-33.0); MEAN CORPUSCULAR HGB CONC 32.9 g/dl (32.0-36.5); MEAN CORPUSCULAR VOLUME 88.9 fl (80.0-96.0); PLATELET COUNT, AUTOMATED 116 10^3/uL (150-450); RED BLOOD COUNT 3.89 10^6/uL (4.30-6.10); WHITE BLOOD COUNT 7.7 10^3/uL (4.0-10.0)
[2021-08-03 06:58] LABS: BLOOD UREA NITROGEN 12 MG/DL (7-18); CALCIUM LEVEL 8.1 MG/DL (8.5-10.1); CARBON DIOXIDE LEVEL 26 MEQ/L (21-32); CHLORIDE LEVEL 110 MEQ/L (98-107); CREATININE FOR GFR 0.89 MG/DL (0.70-1.30); GLOMERULAR FILTRATION RATE > 60.0 (>56); GLUCOSE, FASTING 86 MG/DL (70-100); SODIUM LEVEL 142 MEQ/L (136-145)
[2021-08-03] MEDS ORDERED: MOM 30ML SUSPENSION UDC PO ONE (08:10)
[2021-08-03] MEDS ORDERED: MOM 30ML SUSPENSION UDC PO PRN (08:10)
[2021-08-03] MEDS ORDERED: MIRALAX *UNIT DOSE* 17GM PACKET PO PRN (08:10)
[2021-08-03] MEDS: ENOXAPARIN 40MG/0.4ML SYRINGE (J1650 PER 10MG) SC SCH ×2 (08:44→08:57)
[2021-08-03] MEDS: OMEPRAZOLE 20 MG CAP PO SCH (08:45)
[2021-08-03] MEDS: PRAVASTATIN 20 MG TAB PO SCH (08:45)
[2021-08-03] MEDS: traMADol 50 MG TAB PO SCH (08:45)
[2021-08-03] MEDS: CelecoXIB (CeleBREX) 100 MG CAP PO SCH (08:46)
[2021-08-03] MEDS ORDERED: SENOKOT S TAB PO SCH (09:00)
[2021-08-03] MEDS ORDERED: NITR-67 PO (13:22)
[2021-08-03] MEDS ORDERED: BACI1CAP PO (13:22)
--- NOTE | 2021-08-03 13:29 | IPN ---
PROGRESS NOTE DATE: 08/03/2021 SUBJECTIVE: Patient still complains of a little nausea without vomiting. No fever or chills. Overnight had low-grade temperature of 100.3. Currently on I.V. Ceftriaxone for pyelonephritis. White count is normal at 7.7. Patient complains of constipation. CRP is elevated at 16.3 on Ceftriaxone. E. coli resistant to Levaquin and Bactrim, sensitive to ampicillin, ampicillin-Sulbactam, Ceftriaxone and Zosyn. PHYSICAL EXAMINATION: VITAL SIGNS: Temperature 100.3 T-max, current temperature 99.3, pulse 70, respiratory rate 16, blood pressure 128/77 and 94% on room air. GENERAL: Awake, alert, oriented to person, place and time. Answering questions appropriately. HEENT: Moist mucous membranes. No JVD, thyromegaly or cervical lymphadenopathy. LUNGS: Clear to auscultation. No wheezes or rales. HEART: S1, S2, sinus rhythm. ABDOMEN: Soft, nontender, non-distended. Positive bowel sounds x4 quadrants. EXTREMITIES: No cyanosis, clubbing or pitting edema. LABORATORY DATA/IMAGING STUDIES/MICROBIOLOGY: Have been reviewed. ASSESSMENT AND PLAN: A 56-year-old with neurogenic bladder, self catheterizes, chronic back pain, hyperlipidemia, GERD, admitted due to fever with decreased urine output. He was found to have left-sided pyelonephritis, and started on I.V. Ceftriaxone. IMPRESSION: 1. Sepsis secondary to left pyelonephritis: Patient is status post I.V. fluids and I.V. Ceftriaxone. Urine culture grew out E. coli, resistant to Levaquin and Bactrim, sensitive to Ceftriaxone, ampicillin and ampicillin-Sulbactam, Nitrofurantoin and Zosyn. 2. Intractable nausea, vomiting and constipation: Bowel regimen has been given this morning. Advance diet to a regular diet. 3. GERD: On PPI. 4. Neurogenic bladder: Status post nerve impingement from herniated disc, at risk for recurrent UTIs, currently self catheterizes. 5. Chronic low back pain: Status post surgery for herniated disc on as needed pain medications. 6. Dyslipidemia: Chronic. DISPOSITION: Discharge home today if tolerates diet and has a bowel movement with pain control or in the a.m. depending on clinical status. [facility]
[2021-08-03 14:00] VITALS: BP 141/68
[2021-08-03] MEDS ORDERED: FLEET ENEMA PR ONE (14:00)
[2021-08-03] MEDS: cefTRIAXone SOD 1 GM in D5W MINI-BAG PLUS 50 ML IV SCH (14:15)
--- NOTE | 2021-08-03 17:56 | ECGEPIP ---
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
== END 2021-08-03 16:00 | disposition home or self-care (01) | DRG 872 ==
LOC: M ED 11:15 → M ED INP 18:15 → M MSPAV 22:39
PROVIDERS: ADMIT Internal Medicine; ATTEND General Practice
DX: A41.50 Gram-negative sepsis, unspecified (principal); N10 Acute pyelonephritis; N31.9 Neuromuscular dysfunction of bladder, unspecified; R11.2 Nausea with vomiting, unspecified; K59.00 Constipation, unspecified; M54.5 Low back pain; E78.5 Hyperlipidemia, unspecified; Z79.899 Other long term (current) drug therapy; K21.9 Gastro-esophageal reflux disease without esophagitis; B96.29 Other Escherichia coli [E. coli] as the cause of diseases classified elsewhere

== ENCOUNTER → 2022-02-28 | Outpatient (REF) | payer MEDICARE ==
[~2022-02-28] MED LIST changes: +BACI1CAP PO; +CICL6.6S TOP; -CICL8SOL3 TOP; -MONT10TA10 PO; +MONT10TA97 PO; +NITR-67 PO; -OMEP-221 PO; +OMEP40CA5 PO
[2022-02-28 17:35] LABS: APPEARANCE, URINE CLEAR (CLEAR); BACTERIA, URINE AUTO NEGATIVE (NEGATIVE); BILIRUBIN, URINE AUTO NEGATIVE (NEGATIVE); BLOOD, URINE BLOOD NEGATIVE (NEGATIVE); COLOR, URINE YELLOW (YELLOW); GLUCOSE, URINE (UA) AUTO NEGATIVE (NEGATIVE); KETONE, URINE AUTO TRACE mg/dL (NEGATIVE); LEUKOCYTE ESTERASE, URINE AUTO NEGATIVE (NEGATIVE); MUCUS, URINE SMALL (NEGATIVE); NITRITE, URINE AUTO NEGATIVE (NEGATIVE); PROTEIN, URINE AUTO 1+ mg/dL (NEGATIVE); RBC, URINE AUTO 0 /HPF (0-3); SPECIFIC GRAVITY URINE AUTO 1.031 (1.002-1.035); SQUAMOUS EPITHELIAL CELL UR AU 0 /HPF (0-6); WBC, URINE AUTO 1 /HPF (0-3)
== END ==
LOC: M SMT 16:33
PROVIDERS: ATTEND Urology
DX: N39.0 Urinary tract infection, site not specified (principal)